=== PATIENT | female | born 1950 | race Caucasian/White ===

== ENCOUNTER 2016-05-22 11:12 | Emergency (ER) | payer MEDICARE, OTHER ==
--- NOTE | 2016-05-28 11:08 | ER ---
ADMIT: 05/22/2016 RM/LOC: ER [facility] MR#: [id number] [address] [address] DAVY MELENDREZ [address] [place] [address] Emergency Room Report SEX: F AGE: 66 : 1950 DATE: 05/22/2016 ADDENDUM: This is a 66-year-old white female coming in with recurrent chronic radicular pain going down her left leg. She had been worked up several times for this. Essentially, she has needed some acute pain intervention. We gave her 4 of Zofran, 30 of Toradol IV, 1 of Dilaudid IV, and 20 of Decadron IV, all this seemed to help. I did warn her that her blood sugars would go up for a while. I did send her home with 20 [place] 5/325, 1 or 2 every 6 hours, and she should follow up with her doctor next week. CONDITION ON DISCHARGE: Improved. Ken Salgado MD/ yasmin JOB #: [id number] CC: Ken Salgado MD, Attending Physician Noble Brooks MD, Family Physician
[2016-07-31] MEDS ORDERED: ACETAZOLAMIDE 500 MG PO (10:55)
[2016-07-31] MEDS ORDERED: COLACE-DPS100 MG PO (10:55)
[2016-07-31] MEDS ORDERED: MILK OF MAGNESI10 ML PO ×2 (10:55→10:56)
[2016-07-31] MEDS ORDERED: HEPARIN5000 UNITS SQ (10:56)
[2016-07-31] MEDS ORDERED: SENOKOT S1 TAB PO (10:56)
[2016-07-31] MEDS ORDERED: DULCOLAX-DPS10 MG PR (10:56)
[2016-07-31] MEDS ORDERED: NOVOLOG100 UNIT/2 SQ ×2 (10:57)
[2016-07-31] MEDS ORDERED: PERCOCET 7.5 DP1 TAB PO (10:58)
[2016-07-31] MEDS ORDERED: BACITRACIN15 G1 TP (10:58)
[2016-07-31] MEDS ORDERED: VALIUM-DPS5 MG PO (10:59)
== END 2016-05-22 14:42 | disposition home or self-care (01) ==
LOC: ER 11:12
DX: M54.5 Low back pain (principal); G89.29 Other chronic pain; I10 Essential (primary) hypertension; E11.40 Type 2 diabetes mellitus with diabetic neuropathy, unspecified; Z88.1 Allergy status to other antibiotic agents; Z88.8 Allergy status to other drugs, medicaments and biological substances

== ENCOUNTER 2016-05-27 11:35 | Day surgery (SDC) | payer MEDICARE, OTHER ==
[~2016-05-27] VITALS: Ht 162.6 cm; Wt 76.8 kg
--- NOTE | 2016-06-01 10:17 | OR ---
ADMIT: 05/27/2016 RM/LOC: [facility] MR#: [id number] [address] [address] SHERMANDAVY ROBERTSON [address] [place] [address] Operative/Delivery Room Report SEX: F AGE: 66 : 1950 SURGERY DATE: 05/27/2016 SURGEON: Preethi Yuen MD PREOPERATIVE DIAGNOSIS: Lumbosacral radiculopathy. POSTOPERATIVE DIAGNOSIS: Lumbosacral radiculopathy. NAME OF PROCEDURE: Lumbar epidural steroid injection with fluoroscopy. PAIN PATTERN: L5-S1, right. LEVEL: L5-S1. PREPROCEDURE DISCUSSION WITH PATIENT: Risks and complications were discussed before the procedure was done, and consent was obtained. ANESTHETIC AGENT: Bupivacaine 0.25%. STEROID AGENT: Depo-Medrol 80 mg. FLUOROSCOPIC TIME: 6 seconds. VIEW: AP. PROCEDURE DETAILS: In the treatment room, the patient was placed in the prone position on the fluoroscopy table with the lumbar spine supported by pillows. Using strict aseptic technique, the lumbar spine was prepped and draped in the usual sterile fashion. The skin and underlying tissues were anesthetized with 1% lidocaine at the lumbar interspace, off of midline as identified by fluoroscopy. An 18-gauge Tuohy needle was inserted through the skin marbella and advanced slowly to the epidural space using both loss of resistance technique and fluoroscopic guidance. There was no return of CSF or blood with aspiration. Then, 2 mL of Omnipaque 240 was injected noting adequate spread of dye, confirming epidural placement. There was no apparent intrathecal spread or ADMIT: 05/27/2016 RM/LOC: [facility] MR#: [id number] [address] [address] DAVY MELENDREZ [address] [place] [address] Operative/Delivery Room Report SEX: F AGE: 66 : 1950 vascular uptake of the contrast material. After negative aspiration, an injection of 3 mL preservative-free saline, 2 mL of 0.25% bupivacaine, Depo- Medrol 80 mg (1 mL), for a total volume of 6 mL was administered slowly and incrementally. The needle was flushed, stylet replaced, and then the needle was withdrawn. A sterile dressing was applied to the injection site. The patient was taken to the recovery area in stable condition. TOLERANCE: The patient tolerated the procedure well without any apparent difficulties or complications. VAS Preprocedure: 10 VAS Postprocedure: 0 Preethi Yuen MD/ yasmin JOB #: [id number] CC: Marii Yuen, Attending Physician Nobel Brooks, Family Physician
[2016-07-31] MEDS ORDERED: COLACE-DPS100 MG PO (10:55)
[2016-07-31] MEDS ORDERED: ACETAZOLAMIDE 500 MG PO (10:55)
[2016-07-31] MEDS ORDERED: MILK OF MAGNESI10 ML PO ×2 (10:55→10:56)
[2016-07-31] MEDS ORDERED: DULCOLAX-DPS10 MG PR (10:56)
[2016-07-31] MEDS ORDERED: HEPARIN5000 UNITS SQ (10:56)
[2016-07-31] MEDS ORDERED: SENOKOT S1 TAB PO (10:56)
[2016-07-31] MEDS ORDERED: NOVOLOG100 UNIT/2 SQ ×2 (10:57)
[2016-07-31] MEDS ORDERED: BACITRACIN15 G1 TP (10:58)
[2016-07-31] MEDS ORDERED: PERCOCET 7.5 DP1 TAB PO (10:58)
[2016-07-31] MEDS ORDERED: VALIUM-DPS5 MG PO (10:59)
== END 2016-05-27 14:30 | disposition home or self-care (01) ==
LOC: SSS 11:35
PROC: 3E0S33Z Introduction of Anti-inflammatory into Epidural Space, Percutaneous Approach (ICD-10-PCS; principal; 2016-05-27)
PROC: 3E0S3BZ Introduction of Anesthetic Agent into Epidural Space, Percutaneous Approach (ICD-10-PCS; principal; 2016-05-27)
PROC: B01BYZZ Fluoroscopy of Spinal Cord using Other Contrast (ICD-10-PCS; principal; 2016-05-27)
DX: M54.17 Radiculopathy, lumbosacral region (principal); Z88.1 Allergy status to other antibiotic agents; Z79.899 Other long term (current) drug therapy; Z79.891 Long term (current) use of opiate analgesic; Z88.8 Allergy status to other drugs, medicaments and biological substances

== ENCOUNTER → 2016-06-11 | Outpatient (CLI) | payer MEDICARE, OTHER ==
[~2016-06-11] MED LIST: ACETAZOLAMIDE 500 MG PO; BACITRACIN15 G1 TP; COLACE-DPS100 MG PO; DULCOLAX-DPS10 MG PR; HEPARIN5000 UNITS SQ; MILK OF MAGNESI10 ML PO; NOVOLOG100 UNIT/2 SQ; PERCOCET 7.5 DP1 TAB PO; SENOKOT S1 TAB PO; VALIUM-DPS5 MG PO
== END | disposition home or self-care (01) ==
LOC: RAD.S 12:51
DX: M54.5 Low back pain (principal); M51.27 Other intervertebral disc displacement, lumbosacral region; M48.06 Spinal stenosis, lumbar region

== ENCOUNTER 2016-06-26 04:08 | Emergency (ER) | payer MEDICARE, OTHER ==
--- NOTE | 2016-06-29 00:47 | ER ---
ADMIT: 06/26/2016 RM/LOC: ER [facility] MR#: [id number] [address] [address] DAVY MELENDREZ [address] [place] [address] Emergency Room Report SEX: F AGE: 66 : 1950 DATE: 06/26/2016 HISTORY OF PRESENT ILLNESS: The patient is a 66-year-old female with past medical history of diabetes, spinal stenosis, on L3-L4, L4-L5 and disk herniation on L5-S1, who is waiting for the neurosurgery appointment on Tuesday, came to the ER with a chief complaint of acute on chronic low back pain. Pain is in the same place as before. Patient denies any new trauma. The patient states the [email or web address] is not working anymore for the last month, especially the last week. The patient states the last month, her gait is also disturbed because of the low back pain. The patient denies any saddle anesthesia, urinary or stool incontinence or retention, except for mild stress incontinence of the urine, which she had chronically for senior care. The patient also denies any new weakness or numbness. The patient has chronic numbness on the dorsum of the bilateral feet for years. The patient states most of her symptoms of the back has started about 3 years ago. PHYSICAL EXAMINATION: GENERAL: The patient is in moderate distress. VITALS: Stable. HEAD AND NECK: Normal. CHEST: Clear bilateral. HEART: Normal heart sounds. ABDOMEN: Soft. MUSCULOSKELETAL: There is no point tenderness in the spine in the midline. EXTREMITIES: The patient can move all extremities and motor is grossly normal in all extremities. Sensory is grossly normal except for decreased sensation of dorsum of the bilateral feet, which are chronic. The patient's gait has not changed during the last month, but the whole month was mildly antalgic because of the pain. The patient had no red flags of new entrapment of the nerve and pain was controlled with morphine IM and Toradol IM. The patient received Ativan for spasm too. ADMIT: 06/26/2016 RM/LOC: [facility] MR#: [id number] [address] [address] DAVY MELENDREZ Sukumar [address] [place] [address] Emergency Room Report SEX: F AGE: 66 : 1950 ASSESSMENT AND PLAN: The patient was re-examined and she did not develop any new symptoms. She did not have any new symptoms in favor of cauda equina or other nerve impingement. The patient can be discharged to home with a prescription for 15 Percocet and advised to hold on Mesa and do not take Percocet and Mesa together, and follow up with the primary doctor on Tuesday. The patient acknowledged she understood the plan and agreed with it and was discharged to home. DIAGNOSES: 1. Acute on chronic low back pain. 2. Spinal stenosis at L4-L5 and L5-S1. 3. Disk herniation on the L5-S1. Yuniel Marie MD/ yasmin JOB #: [id number] CC: Yuniel Marie MD, Attending Physician Noble Brooks MD, Family Physician
[2016-07-31] MEDS ORDERED: ACETAZOLAMIDE 500 MG PO (10:55)
[2016-07-31] MEDS ORDERED: MILK OF MAGNESI10 ML PO ×2 (10:55→10:56)
[2016-07-31] MEDS ORDERED: COLACE-DPS100 MG PO (10:55)
[2016-07-31] MEDS ORDERED: HEPARIN5000 UNITS SQ (10:56)
[2016-07-31] MEDS ORDERED: SENOKOT S1 TAB PO (10:56)
[2016-07-31] MEDS ORDERED: DULCOLAX-DPS10 MG PR (10:56)
[2016-07-31] MEDS ORDERED: NOVOLOG100 UNIT/2 SQ ×2 (10:57)
[2016-07-31] MEDS ORDERED: PERCOCET 7.5 DP1 TAB PO (10:58)
[2016-07-31] MEDS ORDERED: BACITRACIN15 G1 TP (10:58)
[2016-07-31] MEDS ORDERED: VALIUM-DPS5 MG PO (10:59)
== END 2016-06-26 05:42 | disposition home or self-care (01) ==
LOC: ER 04:08
DX: M51.27 Other intervertebral disc displacement, lumbosacral region (principal); M48.07 Spinal stenosis, lumbosacral region; E11.9 Type 2 diabetes mellitus without complications; Z88.5 Allergy status to narcotic agent; Z79.84 Long term (current) use of oral hypoglycemic drugs; Z79.899 Other long term (current) drug therapy

== ENCOUNTER → 2016-07-01 | Outpatient (CLI) | payer MEDICARE, OTHER | END | disposition home or self-care (01) | LOC: EDT 13:04 | DX: E11.9 Type 2 diabetes mellitus without complications (principal) ==

== ENCOUNTER → 2016-07-13 | Outpatient (CLI) | payer MEDICARE, OTHER | END | disposition home or self-care (01) | LOC: PTH.S 12:36 | DX: Z01.812 Encounter for preprocedural laboratory examination (principal); M48.06 Spinal stenosis, lumbar region; R26.9 Unspecified abnormalities of gait and mobility; M54.16 Radiculopathy, lumbar region ==

== ENCOUNTER 2016-07-21 05:24 | Inpatient (IN) | payer MEDICARE, OTHER ==
[~2016-07-21] VITALS: Ht 160 cm; Wt 69.1 kg
--- NOTE | ~2016-07-21 | DS ---
ADMIT: 07/21/2016 RM/LOC: 531 [facility] MR#: [id number] 26[address] [facility] [address] [place] [phone] DAVY GRAYSON [address] [place] [address] General Discharge Summary SEX: F AGE: 66 : 1950 ADMISSION DATE: 07/21/2016 DISCHARGE DATE: 07/30/2016 SERVICE: Neurosurgery. REASON FOR ADMISSION: 1. Lumbar stenosis with neurogenic claudication. 2. Lumbar radiculopathy. 3. Low back pain. 4. Gait disturbance. PROCEDURES: 1. Transforaminal lumbar interbody fusion at L3 through sacral 1. 2. Lumbar drain placement. HOSPITAL COURSE: Ms. Grayson tolerated her procedure quite well. During the surgery, a small incidental durotomy was noted at the 3-4 level. That was oversewn with 4-0 Nurolon, and there was no further sign of leak throughout the rest of the case. She was admitted to the Med/Surg floor for monitoring and care. She was kept with the head of her bed flat with log rolls every 2 hours. Postop day #1, she was awake and alert. Her dressing was clean, dry, and intact. She was moving all extremities x4 with 5/5 strength. Postop day #2, she was awake and alert. She was afebrile. Her vital signs were stable. She was moving all extremities x4 with 5/5 strength. Her incision was clean, dry, and intact. The head of her bed was elevated 30 degrees every 2 hours. That afternoon, she did have a little bit of leaking at the top of her incision. A Kerlix roll and an abdominal binder was placed at the incision. They did continue increasing her activity. She worked with Physical Therapy and Occupational Therapy and tolerated quite well. Postop day #3, her vital signs were stable. She was moving all extremities x4. Her wound had likely CSF leak. A lumbar drain was placed per sterile technique at the bedside. She was put back to head of the bed flat. With a log roll every 2 hours. The Kerlix roll and the abdominal binder continued in place. Later that evening, she had increased pain and was started on a fentanyl DAY WORKER. Postop day #2, she was awake and alert. Her vital signs were stable. She was moving all extremities x4 with 5/5 strength. Her incision was clean, dry, and intact. Her lumbar drain was intact. Continued with the head of the bed flat. She was continuing to have some pain and was started on some IV Toradol p.r.n. She did some Physical Therapy and Occupational Therapy while she was flat in bed. She continued to have severe pain. Dr. Cr did start her on a one time dose of Decadron and also changed her to a Dilaudid DAY WORKER. Postop day #5, she was awake and alert. She was afebrile, and her vital signs were stable. She was moving all extremities x4 with 5/5 strength. Her lumbar drain was patent with clear cerebrospinal fluid. Her pain was better controlled with the Dilaudid DAY WORKER. Her incision was clean, dry, and intact. The Kerlix and abdominal binder was intact. That afternoon, her head of bed was increased 30 degrees every 2 hours until she was up. She was complaining of neck pain. She would not let them increase the head of her bed greater then 15 degrees. She had not been getting any of her oral pain medications and was started on ADMIT: 07/21/2016 RM/LOC: 531 [facility] MR#: [id number] [address] [address] DAVY GRAYSON [address] [place] [address] General Discharge Summary SEX: F AGE: 66 : 1950 her oral pain medications with the DAY WORKER to be for breakthrough pain. Postop day #6, she was awake and alert. She was afebrile, and her vital signs were stable. She was moving all extremities x4. Her incision was clean, dry, and intact. Her lumbar drain was patent. She was up to maybe 15 to 30 degrees and did not want to sit up any higher. She was encouraged to increase the head of the bed. Her oral pain medication was increased. She did work with Physical Therapy and Occupational Therapy. Later that morning, she had complained of severe headache after sitting up in the chair for 30 minutes and had increased drainage from her incision while she was sitting up in the chair. She was put back in bed flat with bedrest with log rolls every 2 hours. She was started on some subcu heparin. That afternoon while attempting the oversew her wounds, her skin was cleansed with Betadine and anesthetized with 1% lidocaine. It was noted that her lumbar drain was pulled out. Her incision was oversewn and she tolerated this fairly well. She was started on some acetazolamide and lie flat in bed. The lumbar drain site was sutured. Hospital day #7, she was awake and alert, she was afebrile, and her vital signs were stable. She was moving all extremities x4. Her dressing was clean, dry, and intact. She denies a headache. She was complaining of neck pain. Her Dilaudid DAY WORKER was discontinued, and she continued on the oral pain medications. Once again, the head of her bed was elevated 30 degrees every 2 hours until she was up and out of bed. She did work with Physical Therapy and Occupational Therapy and tolerated this well. Hospital day #8, her vital signs were stable. She was complaining of pain. She would awaken but she was sedated. She was moving all extremities x4. Her wound was clean, dry, and intact. Physical Therapy was asked to evaluate and treat her neck pain. She continued to work with Physical Therapy and Occupational Therapy. Hospital day #9, she was awake and alert. She was depressed. She would not open her eyes, but would shake her head answer. She was afebrile, and her vital signs were stable. She was moving all extremities x4. Her incision was clean, dry, and intact. She was started on some Celexa as she admitted she was feeling depressed. She did work with Physical Therapy and Occupational Therapy and ambulated with a wheeled walker. She did wake up and eat some lunch. She had received some Valium and became sleepy again. She was evaluated by [facility] and deemed to be an appropriate candidate for their inpatient rehabilitation with plans returned her prior function of living status. On the day of discharge, she was deemed medically stable for transfer. DISCHARGE CONDITION: Good. MEDICATIONS: 1. Colace 100 mg p.o. b.i.d. 2. Diamox 500 mg b.i.d. 3. Milk of magnesia 10 mL p.o. q.a.m. p.r.n. 4. Senokot 1 tab p.o. b.i.d. 5. Dulcolax 10 mg suppository q.a.m. p.r.n. 6. Heparin 5000 units subcu t.i.d. 7. NovoLog sliding scale insulin low dose 131 to 180, give 2 units; 181 to 240, give 4 units; 241 to 300, give 6 units; 301 to 350, give 8 units; ADMIT: 07/21/2016 RM/LOC: 531 [facility] MR#: [id number] [facility] [address] [address] DAVY GRAYSON [address] [place] [address] General Discharge Summary SEX: F AGE: 66 : 1950 351 to 400, give 10 units; and over 400, give 12 units and call the MD. 8. Bacitracin ointment to the incision q.p.m. 9. Maalox 30 mL p.o. q.6 hours p.r.n. 10.Percocet 7.5 mg 1 to 2 tablets p.o. q.4 hours p.r.n. 11.Tylenol 650 mg p.o. q.4 hours p.r.n. 12.Valium 5 mg p.o. q.8 hours p.r.n. 13.Metformin 500 mg b.i.d. 14.Nabumetone 750 mg 1/2 tablet b.i.d. 15.Insulin 6 units 70/30 b.i.d. 16.Valium 5 mg q.8 hours p.r.n. 17.Cranberry daily. 18.Melatonin 5 mg at bedtime. 19.Garlic 1000 mg every 3 days. 20.Probiotic daily. 21.Bromelain 400 mg daily. 22.Magnesium with zinc 15/400 daily. 23.Vision formula daily. 24.Vitafusion vitamin daily. 25.Calcium, magnesium, and zinc daily. 26.Vitamin D daily. 27.Fish oil 1200 mg 2 twice a week. 28.CoQ10, 200 mg 3 times weekly. 29.Glucosamine/chondroitin 2 tabs every other day. 30.Cinnamon plus chromium 100 mcg 2 per day. 31.Turmeric/curcumin complex every 3rd day. 32.Vitamin D3 p.r.n. 33.Generic Dulcolax p.r.n. 34.Celexa 20 mg p.o. daily. DISCHARGE INSTRUCTIONS: Per Dr. Cr. She can have a diabetic diet, she ADMIT: 07/21/2016 RM/LOC: 531 [facility] MR#: [id number] [address] [address] DAVY GRAYSON [facility] [place] [address] General Discharge Summary SEX: F AGE: 66 : 1950 may shower, she should not take any tub baths, she should pat her incision dry. She should not lift anything greater than 15 pounds. She should not take any NSAIDs. She should continue with Physical Therapy and Occupational Therapy. She will call with any questions concerns including neurological worsening, signs or symptoms of infection, or any other issues. FOLLOWUP: She will follow up with Kathy in clinic in 2 weeks. DISPOSITION: She was discharged to [facility]. Total [id number] time for the discharge planning and care coordination was 30 minutes. Kathy Gonzalez APRN / Raffy Cr MD / yasmin JOB #: [id number] CC: Raffy Cr MD, Attending Physician Haja Earl MD, Family Physician
--- NOTE | ~2016-07-21 | OR ---
ADMIT: 07/21/2016 RM/LOC: 522 [facility] MR#: [id number] [address] [address] SHERMANDAVY ROBERTSON Sukumar [address] [place] [address] Operative/Delivery Room Report SEX: F AGE: 66 : 1950 SURGERY DATE: 07/21/2016 SURGEON: Raffy Cr MD PREOPERATIVE DIAGNOSIS: Severe stenosis with low back pain, neurogenic claudication, and radiculopathy at lumbar 3-4, 4-5, and lumbar 5-sacral 1. POSTOPERATIVE DIAGNOSIS: Severe stenosis with low back pain, neurogenic claudication, and radiculopathy at lumbar 3-4, 4-5, and lumbar 5-sacral 1. PROCEDURE: 1. Wide laminectomy and facetectomy as wide as necessary, decompressed the thecal sac and nerve roots at lumbar 3-4, 4-5, and lumbar 5-sacral 1. 2. Anterior decompression with diskectomy, lumbar 3-4 and 4-5. 3. Transforaminal lumbar interbody arthrodesis, lumbar 2-3 and 3-4. 4. Anterior decompression of the thecal sac from in-fracture of compressive ossified bony fragment at lumbar 5-sacral 1 without interbody fusion there. 5. Posterolateral arthrodesis, lumbar 3,4,5, and sacral 1. 6. [employer] of autograft through same incision with morcellation of reimplantation. 7. Placement of structural cadaveric allograft at lumbar 3-4 and lumbar 4-5. 8. Intraoperative fluoroscopy and CT scan with physician interpretation of film. 9. Intraoperative neuromonitoring with no sign of breach rhythm on pedicle screw stimulation. DESCRIPTION OF PROCEDURE: After gaining informed consent, the patient was taken to the operative theater, placed under general endotracheal anesthesia in supine position. A time-out was utilized to ascertain the correct site and side of surgery as well as other pertinent patient historical information. Counts were obtained at the beginning and end of the case with no change betwixt the two. Antibiotics were given within 1 hour of incision. Fluoroscope was brought into the field and lumbar 3 through sacral 1 levels were delineated. Once this was noted, incision was then fashioned. This was then taken down to the thoracodorsal fascia which was incised and then subperiosteal dissection was utilized to take the musculature off the spinous processes, lamina, and facets at lumbar 3,4,5, and sacral 1. Once this was completed, self-retaining retractors were placed. Attention was turned to laminectomy and facetectomy. The facets were very arthritic and enlarged crowding over towards the lamina. The spinous processes were removed. Various curettes, rongeurs, and a high- speed drill was used to remove as much bone as was possible, saving this bone for autograft at the end of the case. It was severely stenotic, worst at 3, 4, and 5 and sacral 1. The dura was exceptionally thinned with some scarred over areas, lumbar 3-4. A small incidental durotomy was noted posteriorly as well as very far laterally at the 3-4 level. These were oversewn with 4-0 ADMIT: 07/21/2016 RM/LOC: 522 [facility] MR#: [id number] [address] [place] [phone] DAVY MELENDREZ [address] [place] [address] Operative/Delivery Room Report SEX: F AGE: 66 : 1950 Nurolon and there was no further sign of leak throughout the rest of the case. At this time, decision was made to use DuraGen and DuraSeal at the end of the case. Once the laminectomies were completed, the facetectomies were begun. Bone was drilled off and resected out as widely as possible over top of the neural foramen. It was noted on the left that the disk was very ossified and there was not even room to get an instrument into the neural foramen, and this had to be very cautiously drilled down. The nerve was exquisitely compressed at this level and although once the facet was drilled off widely enough, the left S1 nerve root appeared to be widely decompressed. The rest of the nerve roots were able to be visualized through the neural foramen and there was really no further sign of compression of the thecal sac. At this point, attention was turned to lining up the fluoroscopic tube at each individual level in and placing the lumbar 3,4,5, and sacral 1 pedicle screws in a segmental fashion, decorticating the posterior representation of the pedicle and then passing a pedicle finder through the pedicle into the vertebral body. This was then sounded to ensure bony anatomy at 360 degrees and at depth with attempted intentional bicortical S1 screw placement. Vancomycin powder-coated [employer] screws were then placed into the holes. These screws were then used to place the system on distraction at the time of diskectomies. Approaching from the right side because of some mild scoliosis toward that side, at lumbar 3-4 level, the disk was noted. This was incised in posterior longitudinal ligament. Then, various curettes, rongeurs, rasps, and scrapers were used to resect as much of the disk as was possible, scraping down the endplates. The autograft was mixed with cadaveric allograft and then packed in very tightly into the disk space. Once this was completed, the structural cadaveric allograft was brought into the field and very cautiously tapped into place. There was no sign of complication. Once this was completed, approaching from the left as well at the 4-5 level in a similar fashion, the disk was resected, autograft was then placed followed by allograft. There was no sign of any issues at these levels. Attention was turned to the left side of L5-S1. This was heavily ossified across with a very large posterior bone fragment. This was adherent to the dura and I very cautiously dissected this area off as much as possible and then in-fractured and drilled off some of this bone. This aided in the decompression of the S1 nerve root and thecal sac on the left side. At this point, it was clear that this area appeared to be autofused through deeper into the disk space and as such, I aborted any attempts to drill this out further to place autograft as it looked like it was successfully already autofused. Once this was determined, CT scan was obtained and the pedicle screws were tested for any breach thresholds. At this point, attention was turned to closure. The posterior instrumentation was placed and torqued to appropriate setting, and then the remaining autograft and allograft was packed into the posterolateral gutters after they were decorticated. Cross connectors were placed. DuraGen and Tisseel were placed. No drain was left. Pristine ADMIT: 07/21/2016 RM/LOC: 522 [facility] MR#: [id number] [address] [place] [id number] [place] [address] Operative/Delivery Room Report SEX: F AGE: 66 : 1950 hemostasis was obtained. After the retractors were removed, there was no sign of running blood or any current bleeding. At this point, the wound was closed with simple interrupted 0 Vicryl in the thoracodorsal fascia, simple inverted interrupted 2-0 Vicryl in the hypodermic tissue, and subcuticular 3-0 Stratafix on the skin. Stab incisions were fashioned for the ropivacaine catheters, these were passed into the paraspinous musculature, loaded with 5 mm 0.5% Marcaine and connected to the ropivacaine bulb. ESTIMATED BLOOD LOSS: 250 mL. SPECIMEN: Disks. DISPOSITION: Extubated and taken to postanesthesia care unit. Raffy Cr MD/ yasmin JOB #: [id number] CC: Raffy Cr, Attending Physician Haja Earl, Family Physician
--- NOTE | 2016-07-26 07:11 | OR ---
ADMIT: 07/21/2016 RM/LOC: [address] [facility] MR#: [id number] [facility] [address] [place] [id number] DAVY GRAYSON [address] [place] [address] Operative/Delivery Room Report SEX: F AGE: 66 : 1950 SURGERY DATE: 07/24/2016 SURGEON: Raffy Cr MD PRE-PROCEDURE DIAGNOSIS: Cerebrospinal fluid leak. POSTPROCEDURE DIAGNOSIS: Cerebrospinal fluid leak. PROCEDURE: Lumbar drain placement. INDICATION: Ms. Grayson is a very pleasant 66-year-old woman, who had very thin dura and small durotomies noted during surgery. These were oversewn and covered with fibrin glue and she was laid flat in bed for a couple of days. When we mobilized her yesterday, she had a little bit of fluid drainage. I waited a few hours to be certain it was CSF and not serosanguineous fluid since she had not had a postoperative AYAAN drain. On rounds, the following morning, the fluid had cleared and thinned a bit and as such, determination was made that lumbar drain would be required. I discussed the risks, benefits, and alternatives of the procedure with risks including, but not limited to NM, DVT, PE, pneumonia, , loss of bowel, bladder, sexual function, CSF leak, failure to alleviate symptoms, need for further surgery, as well as others. I believe, she understands the risks, benefits, and alternatives to surgery and wishes to proceed ahead. DESCRIPTION OF PROCEDURE: After gaining informed consent and utilizing a timeout procedure, the patient was laid in the right lateral decubitus position and prepped and draped in usual sterile fashion utilizing sterile technique from a caudal aspect. The area was anesthetized with cardiac lidocaine and then the Tuohy needle was passed into the thecal sac and the lumbar catheter was advanced intrathecally. There was drainage from the catheter after withdrawal of the needle and stylet. This was clear fluid in nature. Once this was completed, this was sewn in place with 2-0 Prolene. COMPLICATIONS: None. ESTIMATED BLOOD LOSS: Minimal. SPECIMEN: None. DISPOSITION: Flat in bed. Raffy Cr MD/ yasmin JOB #: [id number] CC: Raffy Cr, Attending Physician Haja Earl, Family Physician
[2016-07-31] MEDS ORDERED: ACETAZOLAMIDE 500 MG PO (10:55)
[2016-07-31] MEDS ORDERED: MILK OF MAGNESI10 ML PO ×2 (10:55→10:56)
[2016-07-31] MEDS ORDERED: COLACE-DPS100 MG PO (10:55)
[2016-07-31] MEDS ORDERED: SENOKOT S1 TAB PO (10:56)
[2016-07-31] MEDS ORDERED: HEPARIN5000 UNITS SQ (10:56)
[2016-07-31] MEDS ORDERED: DULCOLAX-DPS10 MG PR (10:56)
[2016-07-31] MEDS ORDERED: NOVOLOG100 UNIT/2 SQ ×2 (10:57)
[2016-07-31] MEDS ORDERED: BACITRACIN15 G1 TP (10:58)
[2016-07-31] MEDS ORDERED: PERCOCET 7.5 DP1 TAB PO (10:58)
[2016-07-31] MEDS ORDERED: VALIUM-DPS5 MG PO (10:59)
== END 2016-07-30 14:35 | DRG 460 ==
LOC: 5MS 05:24 → WOR 05:24 → 5MS 15:37 → 3ICU 07-24 08:03 → 5MS 07-28 15:40
PROVIDERS: ADMIT Neurological Surgery
PROC: 01NB0ZZ Release Lumbar Nerve, Open Approach (ICD-10-PCS; principal; 2016-07-21)
PROC: 0SB20ZZ Excision of Lumbar Vertebral Disc, Open Approach (ICD-10-PCS; principal; 2016-07-21)
PROC: 00QT0ZZ Repair Spinal Meninges, Open Approach (ICD-10-PCS; principal; 2016-07-21)
PROC: 0SG10A1 (ICD-10-PCS; principal; 2016-07-21)
PROC: 0SG30Z1 (ICD-10-PCS; principal; 2016-07-21)
PROC: 009U30Z Drainage of Spinal Canal with Drainage Device, Percutaneous Approach (ICD-10-PCS; 2016-07-24)
DX: M51.17 Intervertebral disc disorders with radiculopathy, lumbosacral region (principal); G96.0 Cerebrospinal fluid leak; G97.82 Other postprocedural complications and disorders of nervous system; R26.9 Unspecified abnormalities of gait and mobility; E11.9 Type 2 diabetes mellitus without complications; M48.06 Spinal stenosis, lumbar region; F32.9 Major depressive disorder, single episode, unspecified